=== PATIENT | female | born 1960 | race Caucasian/White ===

== ENCOUNTER → 2023-06-11 09:10 | Outpatient (REF) | payer OTHER, SELFPAY | LOC: RAD 09:10 | PROVIDERS: ATTENDING PHYSICIAN Family Medicine | DX: Z78.0 Asymptomatic menopausal state (principal) | CPT/HCPCS: 77080 ==

== ENCOUNTER → 2024-02-29 11:56 | Outpatient (REF) | payer OTHER, SELFPAY | LOC: WDC 11:56 | PROVIDERS: ATTENDING PHYSICIAN Family Medicine | DX: Z12.31 Encounter for screening mammogram for malignant neoplasm of breast (principal) | CPT/HCPCS: 77063; 77067 ==